=== PATIENT | female | born 1980 | race African-American/Black ===

== ENCOUNTER 2017-03-27 09:56 | Emergency (ER) | payer OTHER ==
[~2017-03-27] VITALS: Ht 149.9 cm; Wt 53.0 kg
[2017-03-27 10:15] VITALS: BP 128/56
== END 2017-03-27 12:10 | disposition home or self-care (01) ==
LOC: ER 10:29
DX: Z76.0 Encounter for issue of repeat prescription (principal); J45.909 Unspecified asthma, uncomplicated; F12.10 Cannabis abuse, uncomplicated
CPT/HCPCS: 99281

== ENCOUNTER 2018-04-03 11:22 | Emergency (ER) | payer OTHER ==
[~2018-04-03] VITALS: Ht 149.9 cm; Wt 47.4 kg
[2018-04-03 12:00] VITALS: BP 106/58
== END 2018-04-03 17:04 | disposition left against medical advice (07) ==
LOC: ER 15:25
DX: M79.605 Pain in left leg (principal); Z53.21 Procedure and treatment not carried out due to patient leaving prior to being seen by health care provider
CPT/HCPCS: 81025

== ENCOUNTER 2018-04-04 09:10 | Emergency (ER) | payer OTHER ==
[~2018-04-04] VITALS: Ht 149.9 cm; Wt 47.0 kg
[2018-04-04] MEDS ORDERED: KETOROLAC 60MG/2ML VIAL IM ONE (13:00)
[2018-04-04 13:21] VITALS: BP 111/41
== END 2018-04-04 13:38 | disposition home or self-care (01) ==
LOC: ER 09:10
DX: M25.562 Pain in left knee (principal)
CPT/HCPCS: 96372; 99283; J1885; L1830